=== PATIENT | male | born 1965 | race Caucasian/White ===

== ENCOUNTER → 2017-08-07 | Day surgery (SDC) | payer OTHER ==
[~2017-08-07] VITALS: Ht 172.7 cm; Wt 82.0 kg
[~2017-08-07] MED LIST: 0.9% Sodium Chloride 1,000 ML IV SCH; FERR325T40 PO; FINA5TAB9 PO; LISI1TAB7 PO; OMEG-38 PO; Sodium Chloride LOK Flush 10 mL Syringe IV PRN; fentaNYL-PF 50 mCg/mL 2 mL Inj IVPUSH PRN
[2017-08-07 11:19] VITALS: BP 120/93; PULSE 61; RESP 16; O2SAT 99
[2017-08-07 12:02] VITALS: BP 119/81; PULSE 53; RESP 14; O2SAT 94
[2017-08-07 12:12] VITALS: BP 111/72; PULSE 53; RESP 14; O2SAT 93
[2017-08-07 12:22] VITALS: BP 104/72; PULSE 53; RESP 14; O2SAT 97
--- NOTE | 2017-08-07 13:30 | ENDO ---
[address] [address] ENDOSCOPY PROCEDURE PATIENT: DIA LR : 1965 MR#: [id number] ADMIT: 08/07/2017 JOB ID: [id number] DATE OF SERVICE: 08/07/2017 TYPE OF OPERATION: Esophagogastroduodenoscopy with biopsy. PREOPERATIVE DIAGNOSIS(ES): Anemia. POSTOPERATIVE DIAGNOSIS(ES): Normal upper endoscopy, status post biopsy. ANESTHESIA: Fentanyl 100 mcg, Versed 5 mg IV administered. COMPLICATIONS: None. BLOOD LOSS: Minimal. DESCRIPTION OF PROCEDURE: After risks and benefits explained to the patient, informed consent was obtained. After anesthesia administered, upper endoscope was then inserted into the mouth, intubating through esophagus, stomach and second portion of duodenum. Mucosa carefully examined. After procedure was done, the scope was withdrawn and the procedure terminated. FINDINGS: Upon inspection of the esophagus, esophagus appeared normal without masses, ulcers, or lesions. Z-line located at 40 cm from incisors. Upon entering the stomach, stomach was also normal without masses, ulcers, or lesions. Retroflexion revealed a normal duodenal bulb, first and second portion. Biopsy was taken of the duodenum. IMPRESSION: Normal upper endoscopy, status post biopsy. RECOMMENDATION: 1. Await pathology results. 2. Follow up in GI clinic as needed. 3. The patient will need colonoscopy for his continued workup for anemia.
--- NOTE | 2017-08-08 18:04 | PATH ---
SURGICAL PATHOLOGY Attending Physician:Colin Carter MD CASE STATUS: Signed Out PATIENT NAME: DIA LR PID: [id number] : 1965 DATE COLLECTED:08/07/2017 22:10 SPECIMEN: Duodenum, Biopsy CLINICAL HISTORY: ANEMIA 1). DUODENUM BIOPSY FINAL DIAGNOSIS: 1.DUODENUM, BIOPSY: DUODENAL MUCOSA WITH NO DIAGNOSTIC ABNORMALITY. Negative for active inflammation, features of sprue, dysplasia, and malignancy. ICD10 D50.9 GROSS DESCRIPTION: The specimen is received in one formalin filled container labeled with the patient's name, sublabeled "duodenum" and consists of 2 portions of tissue which aggregate to 0.4 x 0.3 x 0.2 CM. The specimen is entirely submitted in one cassette. 08/07/2017DC MICRO DESCRIPTION: See diagnosis. ICD-9 CODES: CPT CODES: 1: 44322 Electronically Signed Out Calos Mendoza MD, Ph.D. [facility]ology [facility] [address], [place] [address] Technical component performed at [facility], [address] [place] [address] Ave[address], [place], [address]
== END | disposition home or self-care (01) ==
LOC: END 00:45
PROVIDERS: ATTEND Internal Medicine Gastroenterology
DX: D50.9 Iron deficiency anemia, unspecified (principal); I10 Essential (primary) hypertension; L65.9 Nonscarring hair loss, unspecified
CPT/HCPCS: 43239; 88305; 99152; J2250; J3010; J7030